=== PATIENT | male | born 1975 | race Caucasian/White ===

== ENCOUNTER 2019-11-24 14:51 | Emergency (ER) | payer SELFPAY ==
[2019-11-24 15:33] LABS: ABS Eosinophils 0.2 10^3/ul (0-0.6); ABS Lymphocytes 2.4 10^3/ul (1.0-4.8); ABS Monocytes 0.7 10^3/ul (0-0.8); ABS Neutrophils 2.4 10^3/ul (1.5-7.7); Eosinophil % 2.9 %; Hematocrit 41 % (42-52); Hemoglobin 14.3 g/dL (14.0-18.0); Lymphocyte % 42.4 %; Mean Corpuscular HGB Conc 35 g/dL (31-36); Mean Corpuscular Hemoglobin 31 pg (27-31); Mean Corpuscular Volume 87 fL (80-94); Mean Platelet Volume 7.5 fL (7.4-10.4); Nucleated Red Blood Cells % 0.1; Platelet Count 216 10^3/uL (150-450); Red Cell Distribution Width 13 % (10-15); White Blood Count 5.8 10^3/uL (3.5-10.8)
[2019-11-24 15:54] LABS: INR 0.95 (0.82-1.09)
[2019-11-24 16:03] LABS: Albumin 4.4 g/dL (3.2-5.2); Albumin/Globulin Ratio 1.6 (1-3); BUN/Creatinine Ratio 19.2 (8-20); Calcium 9.2 mg/dL (8.6-10.3); EGFR African American 142.6 (>60); EGFR Non-African American 117.8 (>60); Globulin 2.7 g/dL (2-4); Total Bilirubin 0.4 mg/dL (0.2-1.0); Total Protein 7.1 g/dL (6.4-8.9)
[2019-11-24 16:23] LABS: Potassium 4.3 mmol/L (3.5-5.0)
--- NOTE | 2019-11-24 16:47 | ED ---
Complex/Multi-Sys Presentation - HPI Summary HPI Summary: Patient is a 44 y/o M presenting to [facility] with complaints of light-headedness, difficulty breathing, chest pain, and syncope. It is reported that the patient was found unresponsive outside by family member RECREATION LEADER. Currently, he is alert and oriented x3. Patient states that he remembers passing out. He had complaints of a tingling sensation in his head while coming to ED which has since resolved. He states that he had an episode of intermittent, stabbing, left sided chest pain a week ago that has since resolved. He denies chest pain currently. Only current Sx are light-headedness and SOB. He denies fever, vomiting, diarrhea, and weakness. PMHx of anxiety, panic attacks, and substance abuse noted. He is currently on suboxone 2 mg. Patient reports cigarette and marijuana usage but denies alcohol consumption. Family notes that the patient drinks a lot of red bull. Home medications and allergies are reviewed. - History Of Current Complaint Chief Complaint: EDSyncope Hx Obtained From: Patient Onset/Duration: Still Present - light-headedness, SOB, Resolved - chest pain, syncope, tingling in head Timing: Intermittent, Lasting: - chest pain, syncope, tingling in head Severity Currently: None - no pain currently Location: Pain At: - chest, since resolved Associated Signs And Symptoms: Positive: Dizziness - light-headedness, SOB, Chest Pain - since resolved, Other - positive - syncope, tingling in head;. Negative: Weakness, Vomiting, Diarrhea, Fever - Allergies/Home Medications Allergies/Adverse Reactions: Allergies Allergy/AdvReac Type Severity Reaction Status Date / Time No Known Allergies Allergy Verified 09/23/14 21:12 Home Medications: Home Medications Buprenorp/Nalox 2-0.5 MG SL TB [Suboxone 2-0.5 mg SL TAB*] 1 each SL DAILY 11/24 [History Confirmed 11/24/19] PMH/Surg Hx/FS Hx/Imm Hx Respiratory History: Comment Only: Other Respiratory Problems/Disorders - HX PNEUMONIA Sensory History: Denies: Hx Legally Blind, Hx Deafness Opthamlomology History: Denies: Hx Legally Blind EENT History: Denies: Hx Deafness Psychiatric History: Reports: Hx Anxiety, Hx Substance Abuse - Immunization History Immunizations Up to Date: Yes Infectious Disease History: No Infectious Disease History: Denies: Traveled Outside the [place] in Last 30 Days - Family History Known Family History: Negative: Cardiac Disease, Hypertension, Diabetes - Social History Alcohol Use: None Substance Use Type: Reports: Marijuana Substance Use Comment - Amount & Last Used: daily Hx Tobacco Use: Yes Smoking Status (MU): Heavy Every Day Tobacco Smoker Review of Systems Negative: Fever Positive: Chest Pain - since resolved Positive: Shortness Of Breath Negative: Vomiting, Diarrhea Neurological: Other - positive - tingling in head, since resolved, and light- headedness Positive: Syncope - since resolved . Negative: Weakness All Other Systems Reviewed And Are Negative: Yes Physical Exam - Summary Physical Exam Summary: Constitutional: Well-developed, Well-nourished, Alert. (-) Distressed Skin: Warm, Dry HENT: Normocephalic; Atraumatic Eyes: Conjunctiva normal Neck: Musculoskeletal ROM normal neck. (-) JVD, (-) Stridor, (-) Tracheal deviation Cardio: Rhythm regular, rate normal, Heart sounds normal; Intact distal pulses; Radial pulses are 2+ and symmetric. (-) Murmur Pulmonary/Chest wall: Effort normal. (-) Respiratory distress, (-) Wheezes, (-) Rales Abd: Soft, (-) tenderness, (-) Distension, (-) Guarding, (-) Rebound Musculoskeletal: (-) Edema Lymph: (-) Cervical adenopathy Neuro: Alert, Oriented x3, GCS 15, NIHSS 0 Psych: Mood and affect Normal Triage Information Reviewed: Yes Vital Signs On Initial Exam: Initial Vitals Temp Pulse Resp BP Pulse Ox 97.8 F 86 18 158/94 98 11/24/19 14:54 11/24/19 14:54 11/24/19 14:54 11/24/19 14:54 11/24/19 14:54 Vital Signs Reviewed: Yes - [place] Coma Scale Best Eye Response: 4 - Spontaneous Best Motor Response: 6 - Obeys Commands Best Verbal Response: 5 - Oriented Coma Scale Total: 15 Procedures - Sedation Patient Received Moderate/Deep Sedation with Procedure: No Diagnostics - Vital Signs Vital Signs Temp Pulse Resp BP Pulse Ox 11/24/19 16:10 70 17 122/81 100 11/24/19 16:00 59 15 123/74 98 11/24/19 15:10 71 19 124/76 99 11/24/19 15:07 16 11/24/19 14:54 97.8 F 86 18 158/94 98 - Laboratory Lab Results: Lab Results 11/24/19 11/24/19 11/24/19 Range/Units 15:21 15:22 15:22 WBC 5.8 (3.5-10.8) 10^3/uL RBC 4.70 (4.18-5.48) 10^6 /uL Hgb 14.3 (14.0-18.0) g/dL Hct 41 L (42-52) % MCV 87 (80-94) fL MCH 31 (27-31) pg MCHC 35 (31-36) g/dL RDW 13 (10-15) % Plt Count 216 (150-450) 10^3/uL MPV 7.5 (7.4-10.4) fL Neut % (Auto) 41.5 % Lymph % (Auto) 42.4 % [place] % (Auto) 12.6 % Eos % (Auto) 2.9 % Baso % (Auto) 0.6 % Absolute Neuts (auto) 2.4 (1.5-7.7) 10^3/ul Absolute Lymphs (auto) 2.4 (1.0-4.8) 10^3/ul Absolute Monos (auto) 0.7 (0-0.8) 10^3/ul Absolute Eos (auto) 0.2 (0-0.6) 10^3/ul Absolute Basos (auto) 0.0 (0-0.2) 10^3/ul Absolute Nucleated RBC 0.0 10^3/ul Nucleated RBC % 0.1 INR (Anticoag Therapy) 0.95 (0.82-1.09) D-Dimer, Quantitative < 200 (Less Than 230) ng/mL Sodium (135-145) mmol/L Potassium (3.5-5.0) mmol/L Chloride (101-111) mmol/L Carbon Dioxide (22-32) mmol/L Anion Gap (2-11) mmol/L BUN (6-24) mg/dL Creatinine (0.67-1.17) mg/dL Est GFR ( Amer) (>60) Est GFR (Non-Af Amer) (>60) BUN/Creatinine Ratio (8-20) Glucose (70-100) mg/dL Calcium (8.6-10.3) mg/dL Total Bilirubin (0.2-1.0) mg/dL AST (13-39) U/L ALT (7-52) U/L Alkaline Phosphatase (34-104) U/L Troponin I (<0.03) ng/mL Total Protein (6.4-8.9) g/dL Albumin (3.2-5.2) g/dL Globulin (2-4) g/dL Albumin/Globulin Ratio (1-3) TSH 1.64 (0.34-5.60) mcIU/mL 11/24/19 Range/Units 15:22 WBC (3.5-10.8) 10^3/uL RBC (4.18-5.48) 10^6 /uL Hgb (14.0-18.0) g/dL Hct (42-52) % MCV (80-94) fL MCH (27-31) pg MCHC (31-36) g/dL RDW (10-15) % Plt Count (150-450) 10^3/uL MPV (7.4-10.4) fL Neut % (Auto) % Lymph % (Auto) % [place] % (Auto) % Eos % (Auto) % Baso % (Auto) % Absolute Neuts (auto) (1.5-7.7) 10^3/ul Absolute Lymphs (auto) (1.0-4.8) 10^3/ul Absolute Monos (auto) (0-0.8) 10^3/ul Absolute Eos (auto) (0-0.6) 10^3/ul Absolute Basos (auto) (0-0.2) 10^3/ul Absolute Nucleated RBC 10^3/ul Nucleated RBC % INR (Anticoag Therapy) (0.82-1.09) D-Dimer, Quantitative (Less Than 230) ng/mL Sodium 138 (135-145) mmol/L Potassium 4.3 (3.5-5.0) mmol/L Chloride 102 (101-111) mmol/L Carbon Dioxide 28 (22-32) mmol/L Anion Gap 8 (2-11) mmol/L BUN 14 (6-24) mg/dL Creatinine 0.73 (0.67-1.17) mg/dL Est GFR ( Amer) 142.6 (>60) Est GFR (Non-Af Amer) 117.8 (>60) BUN/Creatinine Ratio 19.2 (8-20) Glucose 110 H (70-100) mg/dL Calcium 9.2 (8.6-10.3) mg/dL Total Bilirubin 0.40 (0.2-1.0) mg/dL AST 25 (13-39) U/L ALT 22 (7-52) U/L Alkaline Phosphatase 65 (34-104) U/L Troponin I 0.00 (<0.03) ng/mL Total Protein 7.1 (6.4-8.9) g/dL Albumin 4.4 (3.2-5.2) g/dL Globulin 2.7 (2-4) g/dL Albumin/Globulin Ratio 1.6 (1-3) TSH (0.34-5.60) mcIU/mL Result Diagrams: 11/24/19 15:22 11/24/19 15:22 Lab Statement: Any lab studies that have been ordered have been reviewed, and results considered in the medical decision making process. - Radiology CXR Radiology Interpretation Completed By: Radiologist Summary of Radiographic Findings: IMPRESSION: #. Stigmata of obstructive lung disease. No acute pulmonary or cardiac process evident. THIS REPORT WAS REVIEWED BY ED PHYSICIAN. - EKG 1500 Cardiac Rate: NL - RATE OF 72 BPM EKG Rhythm: Sinus Rhythm Summary of EKG Findings: EKG showed NSR with rate of 72 BPM, no STEMI. ED physician has reviewed and interpreted this EKG. National Institutes Of Health - NIH Scale Level of Consciousness: Alert/Keenly Responsive Ask Patient the Month and His/Her Age: Both Correct Ask Pt to Open/Close Eyes and Supervisory Training Specialist/Release Non-Paretic Hand: Both Correctly Best Gaze (Only Horizontal Eye Movement): Normal Visual Field Testing: No Visual Loss Facial Paresis-Pt to Smile & Close Eyes or Grimace Symmetry: Normal/Symmetrical Motor Function - Right Arm: No Drift-Holds 10 Seconds Motor Function - Left Arm: No Drift-Holds 10 Seconds Motor Function - Right Leg: No Drift-Holds 10 Seconds Motor Function - Left Leg: No Drift-Holds 10 Seconds Limb Ataxia-Must be out of Proportion to Weakness Present: Absent Sensory (Use Pinprick to Test Arms/Legs/Trunk/Face): Normal Best Language (Describe Picture, Name Items): No Aphasia Dysarthria (Read Several Words): Normal Extinction and Inattention: No Abnormality Total Score: 0 Re-Evaluation - Re-Evaluation First Eval Re-Evaluation Time: 16:39 Change: Improved Comment: Patient Sx are improved and he is comfortable with discharge. Complex Multi-Symp Course/Dx Course Of Treatment: Patient is here with the feeling of passing out. Patient had chest pain or couple of days ago but does not have any today. Patient states even hyperventilating and feeling tingling in his head. Patient does have history of anxiety and panic attacks. Upon arrival, patient is overall well-appearing with an NIHSS of 0. Patient had an EKG which and evidence of ischemia or arrhythmia. Patient had blood which is grossly unremarkable. Patient had a negative d-dimer making PE or dissection highly unlikely. Patient was asymptomatic at the time of discharge. Patient was referred to [facility] referral for a primary care physician. - Diagnoses Provider Diagnoses: Light headedness, Hyperventilation Discharge ED - Sign-Out/Discharge Documenting (check all that apply): Patient Departure - discharge - Discharge Plan Condition: Stable Disposition: HOME Patient Education Materials: Hyperventilation (ED), Lightheadedness (ED) Referrals: [facility] [Outside] Additional Instructions: PLEASE RETURN TO ED FOR SEVERE CHEST PAIN, DIFFICULTY BREATHING, OR ANY OTHER CONCERNING SYMPTOMS. PLEASE FOLLOW UP WITH YOUR PRIMARY CARE PHYSICIAN WITHIN THREE DAYS. - Billing Disposition and Condition Condition: STABLE Disposition: Home - Attestation Statements Document Initiated by Nila: Yes Documenting Scribe: VINCENT ATKINSON Provider For Whom Nila is Documenting (Include Credential): AILYN HALE MD Scribe Attestation: VINCENT Bautista, scribed for AILYN HALE MD on 11/26/19 at 1850. Scribe Documentation Reviewed: Yes Provider Attestation: The documentation as recorded by the VINCENT fierro accurately reflects the service I personally performed and the decisions made by me, AILYN HALE MD Status of Scribe Document: Viewed
[2019-11-24 17:00] VITALS: BP 115/73
== END 2019-11-24 17:00 | disposition home or self-care (01) ==
LOC: ED 14:51
DX: R42 Dizziness and giddiness (principal); R06.4 Hyperventilation; F17.210 Nicotine dependence, cigarettes, uncomplicated; F41.9 Anxiety disorder, unspecified; Z79.891 Long term (current) use of opiate analgesic
CPT/HCPCS: 36415; 71046; 80053; 83036; 84443; 84484; 85025; 85379; 85610; 93005; 99282